=== PATIENT | female | born 1925 | race Caucasian/White ===

== ENCOUNTER → 2016-05-16 | Outpatient (REF) | payer MEDICARE, MEDICAID ==
[~2016-05-16] MED LIST: /ALEN70TA; /PANT40TA; /WARF25TA OR; ACET65TA; ACET65TA OR; ACTO15TA; ACTO30TA OR; AMLO10TA OR; ASPI81CH PO; ASPI81TA83 PO; BISA10SU2; BISA5TA; CADUET; CALC12502; CALCCHW12 PO; COLA100C2; DOCU10ELUD PO; FERR325T; Fleet Enema PR; GLUC5TAB3; LASI40TA PO; LIPI20TA OR; LOPR50TA OR; LOPR50TA PO; MILKSUS; MILKSUS OR; MIRALEX PO; Metamucil; OSCAL D PO; PERC5TAB8; SENN8.6T14; SENN8.6T5 OR; SYNT75TA; SYNT75TA OR; THERGRAN; TOPR25TA; TRAM50TA2 OR; ULTR50TA PO
== END ==
LOC: SKLAB7 07:00
PROVIDERS: ATTEND Family Medicine
DX: E11.9 Type 2 diabetes mellitus without complications (principal); D64.9 Anemia, unspecified

== ENCOUNTER → 2016-07-11 | Outpatient (REF) | payer MEDICARE, MEDICAID ==
[2016-07-11 08:54] LABS: BASO % 0.3 % (0.0-1.0); EOS # 0.3 K/mm3 (0.0-0.50); EOS % 3.2 % (0.0-3.0); LARGE UNSTAINED CELL # 0.2 K/mm3 (0.0-0.4); LARGE UNSTAINED CELL % 2.1 % (0.0-4.0); LYMPH # 2.1 K/mm3 (1.5-4.5); LYMPH % 24.2 % (24.0-44.0); MEAN CORPUSCULAR HEMOGLOBIN 29.6 pg (27.0-33.0); MEAN CORPUSCULAR HGB CONC 31.7 g/dl (32.0-36.5); MEAN CORPUSCULAR VOLUME 93.3 fl (80.0-96.0); MONO # 0.5 K/mm3 (0.0-0.8); MONO % 5.9 % (0.0-5.0); NEUTROPHILS # 5.6 K/mm3 (1.8-7.7); NEUTROPHILS % 64.2 % (36.0-66.0); PLATELET COUNT, AUTOMATED 392 k/mm3 (150-450); RED CELL DISTRIBUTION WIDTH 12.7 % (11.5-14.5); WHITE BLOOD COUNT 8.7 K/mm3 (4.0-10.0)
[2016-07-11 09:11] LABS: ANION GAP 7 MEQ/L (8-16); BLOOD UREA NITROGEN 20 MG/DL (7-18); CALCIUM LEVEL 8.9 MG/DL (8.8-10.2); CARBON DIOXIDE LEVEL 32 MEQ/L (21-32); CHLORIDE LEVEL 101 MEQ/L (98-107); CREATININE FOR GFR 0.83 MG/DL (0.55-1.02); GLOMERULAR FILTRATION RATE > 60.0 (>32); GLUCOSE, FASTING 229 MG/DL (83-110); POTASSIUM SERUM 3.8 MEQ/L (3.5-5.1); SODIUM LEVEL 140 MEQ/L (136-145)
== END ==
LOC: SKLAB7 07:00
PROVIDERS: ATTEND Family Medicine
DX: E11.9 Type 2 diabetes mellitus without complications (principal)

== ENCOUNTER → 2016-07-26 | Outpatient (REF) | payer MEDICARE, MEDICAID ==
[2016-07-26 08:02] LABS: MEAN CORPUSCULAR HEMOGLOBIN 30.1 pg (27.0-33.0); MEAN CORPUSCULAR HGB CONC 29.1 g/dl (32.0-36.5); MEAN CORPUSCULAR VOLUME 103.4 fl (80.0-96.0)
[2016-07-26 08:19] LABS: CREATININE FOR GFR 2.05 MG/DL (0.55-1.02); GLOMERULAR FILTRATION RATE 24.3 (>32); POTASSIUM SERUM 4.8 MEQ/L (3.5-5.1)
== END ==
LOC: SKLAB7 07:35
PROVIDERS: ATTEND Family Medicine
DX: R73.01 Impaired fasting glucose (principal)